=== PATIENT | female | born 1980 | race Hispanic/Latino ===

== ENCOUNTER 2018-02-16 17:34 | Emergency (ER) | payer BC ==
[2018-02-16 18:23] VITALS: BP 123/79; PULSE 77; RESP 18; TEMP 98.6; O2SAT 99
[2018-02-16] MEDS ORDERED: Tdap Vaccine 0.5 ml Vial (10-64 yrs) IM ONE ×2 (19:19→19:47)
--- NOTE | 2018-02-16 19:25 | ED PDOC ---
HPI: General Adult Time Seen by Provider: 02/16/18 19:03 Chief Complaint (Nursing): Abnormal Skin Integrity Chief Complaint (Provider): Left Hand Laceration History Per: Patient Additional Complaint(s): 38 year old left hand dominant female presents to ED with laceration to left index finger. Patient states she was cooking and she sliced her left finger with a kitchen knife. She reports she is able to bend affected digit and she has no numbness or tingling to affected area. Patient does not know when she received last tetanus booster. PMD: [facility] Past Medical History Reviewed: Historical Data, Nursing Documentation, Vital Signs Vital Signs: Last Vital Signs Temp 98.6 F 02/16/18 18:21 Pulse 77 02/16/18 18:21 Resp 18 02/16/18 18:21 BP 123/79 02/16/18 18:21 Pulse Ox 99 02/16/18 19:35 - Medical History PMH: No Chronic Diseases - Family History Family History: States: No Known Family Hx - Living Arrangements Living Arrangements: With Family - Social History Current smoker - smoking cessation education provided: No Alcohol: None Drugs: Denies - Immunization History Hx Tetanus Toxoid Vaccination: No (not sure of last booster) - Allergies Allergies/Adverse Reactions: Allergies Allergy/AdvReac Type Severity Reaction Status Date / Time clams Allergy VOMITING Verified 02/16/18 18:21 Review of Systems ROS Statement: Except As Marked, All Systems Reviewed And Found Negative Skin: Positive for: Other (laceration to left index finger) Physical Exam - Reviewed Nursing Documentation Reviewed: Yes Vital Signs Reviewed: Yes - Physical Exam Appears: Positive for: Well, Non-toxic, No Acute Distress Head Exam: Positive for: ATRAUMATIC, NORMAL INSPECTION, NORMOCEPHALIC Skin: Positive for: Normal Color. Negative for: Rash Eye Exam: Positive for: Normal appearance Extremity: Positive for: Other (1 cm superficial laceration noted to dorsal aspect of left index finger with full range of motion of affected digit, no active bleeding) Neurologic/Psych: Positive for: Alert, Oriented (x3). Negative for: Motor/ Sensory Deficits - Laboratory Results Urine POC: Negative - ECG O2 Sat by Pulse Oximetry: 99 (RA) Pulse Ox Interpretation: Normal Medical Decision Making Medical Decision Making: Time: 1919 Impression: 38 year old female with finger laceration Initial Plan: --Wound will be closed with dermabond --Patient given Tetanus shot Procedure note: Wound was cleansed with saline and Betadine, Dermabond was used to approximate wound edges, good wound approximation was achieved. Procedure tolerated well by patient with no acute complications. Bangage and splint applied to affected area. Patient was given wound care instructions. Scribe Attestation: Documented by Elena Bran, acting as a scribe for Yesy Zarate PA-C. Provider Scribe Attestation: All medical record entries made by the Scribe were at my direction and personally dictated by me. I have reviewed the chart and agree that the record accurately reflects my personal performance of the history, physical exam, medical decision making, and the department course for this patient. I have also personally directed, reviewed, and agree with the discharge instructions and disposition. Disposition - Clinical Impression Clinical Impression: Finger laceration, Requires a booster tetanus - Patient ED Disposition Is Patient to be Admitted: No Counseled Patient/Family Regarding: Diagnosis, Need For Followup - Disposition Referrals: [facility] [Outside] Disposition: Routine/Home Disposition Time: 20:09 Condition: STABLE Additional Instructions: Keep wound clean and dry. Allow excess glue to flake off on its own, do not peel glue. Advil as needed for gongora. Follow up as needed with primary care doctor. Instructions: Laceration Repair With Glue (DC), Diphtheria and Tetanus Toxoids , and Acellular Pertussis Vaccine Forms: [employer] (Ind[place]ian)
== END 2018-02-16 20:14 | disposition home or self-care (01) ==
LOC: H.ER 17:34
DX: S61.211A Laceration without foreign body of left index finger without damage to nail, initial encounter (principal); W26.0XXA Contact with knife, initial encounter; Y92.000 Kitchen of unspecified non-institutional (private) residence as the place of occurrence of the external cause